=== PATIENT | female | born 1985 | race Caucasian/White ===

== ENCOUNTER 2024-11-29 11:47 | Emergency (ER) | payer BC, SELFPAY ==
[2024-11-29 11:49] VITALS: BP 141/87
[2024-11-29 12:11] VITALS: BMI 22.3
[2024-11-29 12:21] VITALS: BP 133/86
[2024-11-29 12:30] LABS: % Basophils 0.4 % (0-2); % Eosinophils 0.1 % (0-6); % Immature Granulocytes 0.2 % (0-0.5); % Lymphocytes 10.7 % (20.5-51.1); % Neutrophils 80.6 % (42.2-75.2); Absolute Lymphocytes 1.1 10^3/uL (1.2-3.4); Absolute Monocytes 0.8 10^3/uL (0.1-0.6); Absolute Neutrophils 8.3 10^3/uL (1.4-6.5); Hematocrit 41.6 % (37.0-47.0); Hemoglobin 13.8 g/dL (12.0-16.0); Mean Corp Hgb Conc. 33.2 g/dL (33.0-37.0); Mean Corpuscular Hgb 29.9 pg (27.0-31.0); Mean Corpuscular Volume 90.2 fL (81.0-99.0); Nucleated Red Blood Cells % 0 %; Platelet Count 263 10^3/uL (130-400); Red Blood Cell Count 4.61 10^6/uL (4.20-5.40); Red Cell Dist. Width 12.2 % (11.5-14.5); White Blood Cell Count 10.3 10^3/uL (4.8-10.8)
--- NOTE | 2024-11-29 12:30 | ED.GENMED ---
History of Present Illness
General
Chief Complaint: Throat Problem
Source: patient
Exam Limitations: none
Time Seen by Provider: 11/29/24 12:09
Nursing documentation reviewed up to this point in time: agreed with
History of Present Illness
History of Present Illness:
39-year-old female with no reported chronic medical issues presents to the emergency room for evaluation of fever and sore throat. Patient reports that she had mild sore throat started on Tuesday which progressed and was associate with fever on
Tuesday. She saw her primary care physician and was swabbed for strep and tested for mono, flu, COVID which were all reportedly negative. She says she was started on Augmentin which she began taking on Tuesday evening and has been taking since.
She says sore throat has slightly improved but she is having progression of painful lump in the left side of her neck and has still had fever with a Tmax of 102 �F. Today was seen in follow-up by her primary doctor who referred to the emergency
room with concern for a peritonsillar abscess. She does have trismus. Denies any drooling. Denies shortness of breath. She denies any change in voice.
Review of Systems
Review of Systems
All Other Systems: ROS reviewed and negative except as documented in HPI and ROS
Constitutional: Reports fever and chills
EENT: Reports sore throat
Respiratory: Denies trouble breathing
Cardiac: Denies chest pain
ABD/GI: Denies vomiting
Phy Exam
Physical Exam
Physical Exam:
General: Awake, alert; no acute distress
Head: Normocephalic, atraumatic
Eyes: Conjunctiva normal
Throat: Airway intact, handling secretions without drooling, no stridor; she has erythema of the pharynx and bilateral tonsillar erythema, left tonsil asymmetrically enlarged; uvula is midline
Neck: Trachea midline, supple without meningismus; she does have palpable lump left anterior neck which is tender to the touch but no overlying skin changes
Lungs: Clear to auscultation bilaterally, no wheezing, rales, rhonchi
Heart: Regular rate and rhythm, no murmurs, gallops, or rubs
Neuro: No gross deficits
Extremities: Warm and well perfused
Scores
Heart Failure Risk
Heart Failure Risk Score: Not Applicable
Heart Score for Chest Pain Patients
STEMI patient?: Not applicable
Withdrawal Assessment of Alcohol
Withdrawal Assessment Completed?: Not applicable
Sepsis
Sepsis Screening
Sepsis Assessment: Sepsis Ruled Out
Sepsis Screen
Sepsis Screen: Sepsis Ruled Out
Date: 11/29/24
Time: 12:38
Course
Orders/Labs/Results
Orders:
Orders
11/29/24 12:09
CT Neck With Iv Contrast Urgent
Comment:
Reason For Exam: sore throat, fever, tonsillar assymetry--c/f [employer]
Test Result ONCE
11/29/24 12:15
Complete Blood Count/With Diff Urgent
Comprehensive Metabolic Panel Urgent
HCG, Serum Qualitative Screen Urgent
Abnormal Lab Results
11/29/24
12:15
Absolute Neuts (auto) 8.3 H 10^3/uL
(1.4-6.5)
Absolute Lymphs (auto) 1.1 L 10^3/uL
(1.2-3.4)
Absolute Monos (auto) 0.8 H 10^3/uL
(0.1-0.6)
Neutrophils % 80.6 H %
(42.2-75.2)
Lymphocytes % 10.7 L %
(20.5-51.1)
11/29/24 12:15
Vital Signs
Initial and Last Documented VS:
Initial Vital Signs
Temp Pulse Resp BP Pulse Ox
36.9 C 118 16 141/87 100
11/29/24 11:49 11/29/24 11:49 11/29/24 11:49 11/29/24 11:49 11/29/24 11:49
Last Documented Vital Signs
Temp Pulse Resp BP Pulse Ox
36.8 C 106 23 133/86 100
11/29/24 12:00 11/29/24 12:22 11/29/24 12:22 11/29/24 12:21 11/29/24 12:22
MDM/Problems Addressed
Differential Diagnosis Includes:
Tonsillitis, pharyngitis, peritonsillar abscess, retropharyngeal abscess
MDM/Problems Addressed:
39-year-old female presents with sore throat, fever, painful lump in the left side of her neck. Symptoms progressing despite 48 hours of Augmentin. She is tachycardic here but has otherwise normal vitals. Physical exam as above. Will check labs,
hCG and send for a CT of the neck. Already had outpatient strep, COVID, flu, mono which were reportedly negative. Will monitor and reassess after the above.
*Radiology
Radiology exam reviewed: radiology read reviewed
*Pulse Oximetry
Patient hypoxic: no
*Critical Care Note
Total Time (30-74mins, 75-104mins- exclusive of procedures): Not Applicable
Data Reviewed
Source: patient and physician (Physician who called ahead)
ED Attending Note
-
Portions of this chart may have been created with voice recognition software.� Occasional wrong word or��sound alike� substitutions may have occurred due to the inherent limitations of voice recognition software.
Discharge Plan
Interventions
Interventions:
*Risk Screen - Suicide Last Done: 11/29/24 12:13
*General Assessment Last Done: 11/29/24 12:13
*Neglect/Abuse Screening Last Done: 11/29/24 12:13
*ED- Fall Risk Assessment Last Done: 11/29/24 12:13
*ED COVID-19 Vaccine History Last Done: 11/29/24 12:13
ED-EENT Assessment Last Done: 11/29/24 12:13
ED- Pulmonary Assessment Last Done: 11/29/24 12:13
Discharge Date and Time
Print Language: SAMOAN
[2024-11-29 12:47] LABS: HCG, Serum Qualitative Screen Negative
[2024-11-29 12:49] LABS: ALT (SGPT) 19 U/L (0-35); AST (SGOT) 22 U/L (14-36); Albumin 4.7 g/dl (3.5-5.0); Alkaline Phosphatase 83 U/L (38-126); Blood Urea Nitrogen 7 mg/dl (7-17); Calcium 9.6 mg/dl (8.4-10.2); Carbon Dioxide 26 mmol/L (22-30); Chloride 105 mmol/L (98-107); Estimated Creatinine Clearance 124 ml/min; Glucose 140 mg/dl (70-99); Sodium 141 mmol/L (135-145); Total Bilirubin 0.6 mg/dl (0.2-1.3); Total Protein 8.1 g/dl (6.3-8.2); eGFR > 60.00
[2024-11-29] MEDS: TORADOL 15 MG IV (12:59)
[2024-11-29] MEDS: NSS 1000 IV (13:00)
[2024-11-29 13:01] VITALS: BP 127/79
[2024-11-29] MEDS: DECADRON 10 MG IV (14:42)
[2024-11-29 15:16] VITALS: BP 120/72
== END 2024-11-29 15:20 | disposition home or self-care (01) ==
LOC: EMR 11:47
PROVIDERS: EMERGENCY PHYSICIAN Emergency Medicine; FAMILY PHYSICIAN Student in an Organized Health Care Education/Training Program
DX: J03.90 Acute tonsillitis, unspecified (principal); R59.0 Localized enlarged lymph nodes
CPT/HCPCS: 99285; 96374; 96375; 96361; 70491; 80053; 84703; 85025; Q9967